=== PATIENT | male | born 1960 | race Caucasian/White ===

== ENCOUNTER 2017-02-28 19:38 | Inpatient (IN) | payer OTHER ==
[~2017-02-28] VITALS: Ht 182.9 cm; Wt 147.8 kg
[~2017-02-28 19:38] MED LIST: IBUP200T48 PO; OXYC-167 PO
[2017-02-28 19:41] VITALS: BP 151/88; PULSE 84; RESP 17; O2SAT 96
--- NOTE | 2017-02-28 20:11 | ED.REPORT ---
HPI-Abd Pain M 40 and Over Date of Service Feb 28, 2017 ED Provider: Gurjit Trujillo MD Pt is a 56 year old male with a history of a herniated disc and chronic lower extremity joint pain who presents to the ED with epigastric abdominal pain onset last night, waking him from sleep. The pain is described as a constant, dull ache with intermittent sharp pains. The pain radiates to his back and is exacerbated with eating and drinking liquids. The patient also reports nausea. He denies vomiting, melena, chest pain, or other symptoms. The patient reports taking 1200mg or more of Ibuprofen daily for his chronic pain. He denies any histories of gastritis or gastric ulcers. He has never had symptoms like this before. He does report that the pain is slightly worse when he takes a deep breath. His pain is not associated with exertion. He has had no fevers or chills. No history of coronary artery disease. No calf swelling or tenderness. No recent surgery or prolonged immobilization. Nursing Notes Stated Complaint: ABDOMINAL PAIN Chief Complaint: Male Abdominal Pain Nursing Notes Reviewed: Yes Allergies: Coded Allergies: No Known Allergies (Verified , 09/20/08) Scheduled IBUPROFEN-Expunged Drug, Do Not Renew! (IBUPROFEN-Expunged Drug, Do Not Renew!) 200 Mg Tablet 600 MG PO PRN QID as needed/Stopped 12/20/10 Oxycodone/APAP-Expunged Drug, Do Not Renew! (Endocet 0-699-Jbuinokn Drug, Do Not Renew!) 1 Tab Tablet 1-2 TAB PO PRN Every 4-6 hours as needed Pantoprazole (Pantoprazole ) 20 Mg Tablet. 20 MG PO BID Scheduled PRN Ondansetron (Zofran) 4 Mg Tablet 4 MG PO Q4H PRN PRN For Nausea General Time Seen by MD: 19:52 Chief Complaint Abdominal pain Hx Obtained From: Patient Arrived By: Walk-in Sudden in Onset?: Yes Onset Occurred: Yesterday (Last night) Context of Onset: Sleeping Symptom Duration: Since onset Progression since Onset: Constant Location: : Epigastric Quality: Aching, Painful, Sharp Severity: Current: Moderate Severity: Maximum: Moderate Exacerbated by: Eating (and drinking) Pertinent Negative: Relieved by nothing Recent Healthcare: No recent doctor visit Past Medical History Past Medical History Herniated disc Chronic knee and ankle pain Osteoarthritis Past Surgical History Knees Smoking History Unknown if Ever Smoker Social History Alcohol Use: Denies alcohol use Other Social History: Good social support, Ambulatory Status Independent Review of Systems Constitutional: Denies: Fever Respiratory: Denies: Non-productive cough Cardiovascular: Denies: Chest pain GI: Reports: Abdominal pain (Epigastric), Nausea, Denies: Melena, Vomiting Musculoskeletal: Reports: Back pain Complete sys rev & neg: except as marked. Physical Exam Initial Vital Signs Vital Signs (First) Date Time Temp Pulse Resp B/P Pulse Ox O2 Delivery O2 Flow Rate FiO2 02/28/17 19:41 36.4 84 17 151/88 96 Room Air Initial VS: Reviewed Head / Eyes: Atraumatic, Normocephalic ENT: Conjunctiva normal, No scleral icterus Neck: Supple, Full range of motion Skin: Warm, Dry, No cyanosis Neurologic: Alert, Oriented, Nonfocal Psychiatric: Mood/affect normal, Behavior normal, Normal thought content General/Constitutional: Awake, Alert Respiratory / Chest: Breath sounds NL, Breath sounds = bilat, No respiratory distress Cardiovascular: Heart rate NL, Regular rhythm, Heart sounds NL, No gallop, No murmurs, No rubs Abdomen: Soft (No rigidity), No guarding, No rebound Tenderness/Guarding/Rebound: Positive: Tender epigastric Lower Extremity / Pelvis / MS: Inspection NL, No swelling, Non-tender, No edema Interpretation & Diagnostics Lab Results Interpretation Result Diagram: 02/28/17201902/28/172019 Test 02/28/17 20:20 02/28/17 20:50 White Blood Count 16.7th/mm3 (3.8-10.1) Red Blood Count 5.49mil/mm3 (4.40-5.80) Hemoglobin 15.9g/dL (13.8-17.2) Hematocrit 46.5% (41.0-50.0) Mean Corpuscular Volume 84.7fL (81-100) Mean Corpuscular Hemoglobin 29.0pg (27.0-35.0) Mean Corpuscular Hemoglobin Concent 34.2% (32.0-37.0) Red Cell Distribution Width 13.2% (12.3-15.4) Platelet Count 195bil/L (150-400) Neutrophils (%) (Auto) 88.1% (40-74) Lymphocytes (%) (Auto) 5.0% (14-46) Monocytes (%) (Auto) 5.6% (4-12) Eosinophils (%) (Auto) 0.9% (0-5) Basophils (%) (Auto) 0.2% (0-3) Sodium Level 137mEq/L (134-144) Potassium Level 4.2mEq/L (3.5-5.2) Chloride Level 101mEq/L (97-108) Carbon Dioxide Level 19mmol/L (18-29) Blood Urea Nitrogen 14mg/dL (6-24) Creatinine 0.67mg/dL (0.76-1.27) Estimat Glomerular Filtration Rate 130mL/min (>59) Glucose Level 133mg/dL (60-99) Calcium Level 8.8mg/dL (8.5-10.1) Magnesium Level 1.8mg/dL (1.6-2.6) Total Bilirubin 0.8mg/dL (0.0-1.2) Aspartate Amino Transf (AST/SGOT) 131U/L (0-50) Alanine Aminotransferase (ALT/SGPT) 179U/L (0-44) Alkaline Phosphatase 74U/L (25-150) Troponin T < 0.010ug/L (0.0-0.011) Total Protein 7.0g/dL (6.4-8.4) Albumin 4.5g/dL (3.4-5.0) Lipase 1120U/L (13-60) Urine Color Dark yellow (YELLOW) Urine Appearance Hazy (CLEAR,HAZY) Urine pH 5.5 (5.0-8.0) Urine Specific [place] 1.030 (1.003-1.035) Urine Protein Negativemg/dL (NEG,TRACE) Urine Glucose (UA) Negativemg/dL (NEGATIVE) Urine Ketones Tracemg/dL (NEGATIVE) Urine Occult Blood Negative (NEGATIVE) Urine Nitrite Negative (NEGATIVE) Urine Bilirubin Negative (NEGATIVE) Urine Urobilinogen Normalmg/dL (NORMAL) Urine Leukocyte Esterase Negative (NEGATIVE) Urine RBC 0-2/hpf (0-2) Urine WBC 0-5/hpf (0-5) Urine Epithelial Cells Occasional/hpf (NONE-MOD) Urine Crystals None seen (NONE SEEN) Urine Bacteria Few/hpf (NONE-FEW) Urine Hyaline Casts None/lpf (NONE) Urine Granular Casts None seen (NONE SEEN) Urine Waxy Casts None seen (NONE SEEN) Urine Red Blood Cell Casts None seen (NONE SEEN) Urine White Blood Cell Casts None seen (NONE SEEN) Urine Mucus Present (None Seen) Urine Trichomonas None seen (NONE SEEN) Urine Yeast None (NONE SEEN) Urinalysis Comment None Urine Culture Reflexed Not indicated ECG Interpretation ECG Interpretation: Normal sinus rhythm rate [address] segments Normal T-wave intervals No prior available for comparison Time: 20:52 Interpreted by: ED physician Re-Eval/Medical Decision Med Decision/Clinical Course The patient is a 56-year-old male in generally good health though with chronic pain related to orthopedic injuries for which he takes large doses of ibuprofen presenting to the emergency department with epigastric pain that is worse with eating and associated with nausea. Upon arrival in the emergency department the patient is afebrile with stable vital signs normal. Somewhat uncomfortable. He was treated with IV fluids, IV pantoprazole, Zofran for nausea and a GI cocktail as well as hydromorphone. He reported significant improvement in his symptoms. Laboratory studies were notable as below: Leukocytosis 16.7 CBC otherwise unremarkable CMP notable for elevated transaminases AST 131 ALT 179 Lipase 1120 Troponin negative ECG 20:52 Normal sinus rhythm rate [address] segments Normal T-wave intervals No prior available for comparison Overall presentation concerning for acute gallstone pancreatitis. My initial thought was that his pain was related to instead gastritis/peptic ulcer disease though given his lab findings this seems less likely. The presentation is not particularly suggestive of acute coronary syndrome however I did obtain a screening EKG and troponin which were reassuring. At this time I have ordered a right upper quadrant ultrasound. The patient has been signed out to Dr. Mcgregor pending imaging studies and likely surgery consultation. Time of Eval: 21:53 Patient Status: Condition improved Re-Evaluation/Progress Note: Discussed with patient lab results, diagnosis, and plan for US and transfer of care to Dr. Campbell at change of shift. Counseled Regarding: Diagnosis, Lab results Discharge & Departure Shift Change Sign-Out Patient Care Transferred: Yes Discussed Complaint(s): Yes Laboratory Evaluation: Done, results pending Imaging Studies: Ordered, not yet done Response to Therapy: Improved Primary Impression: Acute pancreatitis Pancreatitis type: unspecified pancreatitis type Acute pancreatitis complication: unspecified Qualified Code: K85.90 - Acute pancreatitis without necrosis or infection, unspecified Additional Impressions: Elevated transaminase measurement Epigastric pain Vital Signs - All Vital Signs Date Time Temp Pulse Resp B/P Pulse Ox O2 Delivery O2 Flow Rate FiO2 02/28/17 19:41 36.4 84 17 151/88 96 Room Air Referrals: NOPCP (PCP) [facility] Care Transferred to: Dr. Campbell Care Transferred at: 21:55 Scribe Attestation Portions of this note were transcribed by Anita Yun. I, Dr. Trujillo, personally performed the history, physical exam, and medical decision-making; I reviewed and confirmed the accuracy of the information in the transcribed note. Signed by: Ruth Page, 02/28/2017, 21:55 copies to: [facility] Gurjit Trujillo MD Feb 28, 2017 20:10 ANITA YUN Feb 28, 2017 20:18 personally performed the history, physical exam, and medical decision-making; I reviewed and confirmed the accuracy of the information in the transcribed note. copies to: [facility] Gurjit Trujillo MD Feb 28, 2017 20:10 ANITA UYN Feb 28, 2017 20:18 Gurjit Trujillo MD Feb 28, 2017 20:10 ANITA YUN Feb 28, 2017 20:18
[2017-02-28] MEDS ORDERED: 0.9% Sodium Chloride 1,000 ML IV ONE (20:17)
[2017-02-28] MEDS ORDERED: LidocaineVisc 2%:Antacid 1:1 10 mL Syringe PO ONE (20:20)
[2017-02-28] MEDS ORDERED: Pantoprazole 4 mg/mL 10 mL Inj IVPUSH ONE (20:20)
[2017-02-28] MEDS ORDERED: Ondansetron 2 mg/mL 2 mL Inj IVPUSH ONE (20:20)
[2017-02-28 20:29] LABS: BASOPHILS % (AUTO) 0.2 % (0-3); EOSINOPHILS % (AUTO) 0.9 % (0-5); MONOCYTES % (AUTO) 5.6 % (4-12); Mean Corpuscular Volume 84.7 fL (81-100); NEUTROPHILS % (AUTO) 88.1 % (40-74); Platelet Count 195 bil/L (150-400)
[2017-02-28] MEDS: HYDROmorphone 0.5 mg/0.5 mL iSecure Syringe IVPUSH PRN ×3 (20:39→23:49)
[2017-02-28 20:50] LABS: TROPONIN T < 0.010 ug/L (0.0-0.011)
[2017-02-28] MEDS ORDERED: PANT20TA2 PO (20:53)
[2017-02-28] MEDS ORDERED: ONDA4TAB6 PO (20:53)
[2017-02-28 21:00] LABS: Magnesium 1.8 mg/dL (1.6-2.6)
[2017-02-28 21:15] LABS: Lipase 1120 U/L (13-60)
[2017-02-28 21:47] LABS: APPEARANCE,URINE HAZY (CLEAR,HAZY); COLOR,URINE DARK YELLOW (YELLOW); OCCULT BLOOD,URINE NEGATIVE (NEGATIVE); PH,URINE 5.5 (5.0-8.0); UROBILINOGEN,URINE NORMAL (NORMAL)
[2017-02-28 23:02] VITALS: BP 139/81; PULSE 75; RESP 16; O2SAT 96
[2017-03-01] VITALS (10 sets, daily range): BP systolic 125–152; BP diastolic 70–91; PULSE 78–113; RESP 18–20; O2SAT 93–100
[2017-03-01] MEDS ORDERED: Ondansetron 2 mg/mL 2 mL Inj ONE (00:54)
[2017-03-01] MEDS ORDERED: Polyethylene Glycol (PEG) 17 Gm Powder PO PRN (01:05)
[2017-03-01] MEDS ORDERED: Alum-Mag Hydrox-Simeth 30 mL Suspension PO PRN (01:05)
--- NOTE | 2017-03-01 01:07 | PCM.HPMED ---
Subjective Date of Service Mar 01, 2017 Primary Provider: Admitting Physician: Padmini Yanez DO Primary Care Physician: Elisabet Attending Physician: Padmini Yanez DO Admit Status: From the Emergency Department Chief Complaint: abdominal pain History of Present Illness: 56yoM with minimal past medical history admitted with 2 day history of epigastric pain with concern for pancreatitis. On 02/27 at 9pm patient states that he began having 7/10 mid epigastric pain that radiated in a band like distribution and progressed to 9/10. Pain was associated with nausea and improved with tramadol however persisted until seen at [facility] ED for further evaluation. Patient has never felt similar pain before but he does have a traumatic back injury which interferes with his evaluation of his pain. He has no history of pancreatitis, gall stones, cholelithiasis, ETOH use, HLD or recent medication changes. He denies fever, chills, vomiting, lightheadedness, dizziness, chest pain, chest tightness, shortness of breath but does endorse nausea with a decrease in PO intake. On presentation vitals T36.4, HR 84, RR 17, BP 151/88, 96% on RA. WBC 16.7, lipase 1120, mildly elevated AST/ALT Review of Systems: complete review of systems obtained. positive as per hpi otherwise negative. 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, [employer] Hx Alcohol Use: No Hx Substance Use: No Hx Tobacco Use: No Smoking Status: Unknown if Ever Smoker Living Arrangement: with Family (Lives with who is DPOA) Exam Vital Signs Vital Sign - Last Date Time Temp Pulse Resp B/P Pulse Ox O2 Delivery O2 Flow Rate FiO2 02/28/17 23:02 36.8 75 16 139/81 96 Room Air Intake and Output 02/28/17 02/28/17 03/01/17 Cumulative From/Thru 15:00 23:00 07:00 02/28/17 19:41 - 02/28/17 20:39 Intake Total 1000 ml 1000 ml Balance 1000 ml 1000 ml Intake IV Total 1000 ml 1000 ml Exam General: Alert, Oriented X3, Cooperative, No acute Distress Eyes: PERRLA, Scleral Anicteric Mouth: Mouth Normal, Mucous Membranes Dry/[place] Neck: Supple, no Thyromegaly, trachea central. Chest & Lungs: Clear to auscultation & percussion, No adventitious breath sounds, no crackles, no wheeze Cardiovascular: Normal S1, Normal S2, No Murmurs/Rubs/Gallops, Regular Rate/ Rhythm, Murmur, Other (No JVD, no peripheral edema) Pulses: Radial (present and equal), Dorsalis Pedi (present and equal) Abdomen: Soft, tender in the epigastric region, Non-distended, Normoactive bowel tones. Musculoskeletal: Unremarkable. Normal range of motion, no swollen or erythematous joints Extremities: No edema, no cyanosis, no clubbing. Skin: No rashes. Warm and dry, no erythematous areas Neurological: Grossly neurologically intact, has generalized weakness, Normal Speech, Sensation Intact Lymphatic: Lymph nodes Cervical and Axillary not palpable Lab and Diagnostics Result Diagram: 02/28/17201902/28/172019 X-Rays, CTs and MRIs CT abdomen pelvis with contrast Conclusion: Acute pancreatitis. Small amount of ascites. Cholelithiasis. Prominent gallbladder wall may be consistent with acute cholecystitis or secondary to pancreatitis. Fat containing umbilical hernia without evidence of complication. Colonic diverticulosis. Atelectasis in the lung bases. Assessment & Plan 56yoM with minimal past medical history admitted with 2 day history of epigastric pain with concern for pancreatitis. Pancreatitis, acute -no prior history of pancreatitis, no ETOH use, no history of elevated triglycerides -likely secondary to gall stones however CBD not dilated, AST / ALT elevated -CT scan as above, consistent with pancreatitis -triglyceride level pending -NS 150cc/hr -clear liquid diet -GI consult, am team to contact, recs appreciated -consider MRCP Leukocytosis, acute -potentially a/w pancreatitis however CT scan concerning for cholecystitis -will continue to monitor closely -low threshold to start broad spectrum abx Elevated glucose, acute -no history of diabetes -hgbA1c pending Elevated transaminase level, acute -a/w gallstone dz vs NAFLD -repeat with AM labs Pain Evaluation: Adequate Pain Control VTE Prophylaxis: Sub-Q Heparin (Unfractionated) Resuscitation Status: DNR/DNI:Do Not Resuscitate/Intubate Padmini Yanez DO Mar 01, 2017 01:07
[2017-03-01] MEDS: 0.9% Sodium Chloride 1,000 ML IV SCH ×3 (01:59→16:32)
[2017-03-01] MEDS: HYDROmorphone 0.5 mg/0.5 mL iSecure Syringe IVPUSH PRN ×4 (02:38→10:37)
--- NOTE | 2017-03-01 02:53 | NUR ---
Admit to room 3029 @01:45 gallstone pancreatitis. A&Ox3, pain 0/10, denies N/V, VSS sat'ing 100% on RA 152/87 bp 88p temp 36.6. Oriented to room and POC on whiteboard. Intermittent unsteady gait/cane use since work place herniated disk x3 injury six months ago. High risk for JACQUELINE.
[2017-03-01] MEDS ORDERED: TRAM50TA2 PO (03:10)
--- NOTE | 2017-03-01 05:50 | NUR ---
Pain Positional lower back pain. Does not tolerate laying in bed for prolonged periods of time. approximately Q2 hours will request help standing due to bulging disks acquired during work accident 6 mo' ago. Tried bed flat, 30 deg, trendelenburg. Received order for Q4 5mg Roxycodone to compliment Q4 0.5-1mg IV Hydromorphone break through pain.
[2017-03-01] MEDS: Ondansetron 2 mg/mL 2 mL Inj IVPUSH PRN ×2 (06:42→18:14)
--- NOTE | 2017-03-01 07:23 | DRSVH ---
PROCEDURE: CT ABDOMEN AND PELVIS WITH CONTRAST ([id number]) INDICATIONS: epigastric pain, pancreatitis TECHNIQUE: After the administration of intravenous contrast, 5 mm thick sections acquired from the diaphragm to the symphysis. 5 mm coronal and sagittal reformats were acquired. For radiation dose reduction, the following was used: automated exposure control, adjustment of mA and/or kV according to patient siz e. COMPARISON: None. FINDINGS: Image quality: Excellent. ABDOMEN: Lung bases: Dependent changes are present within the bases. Solid organs: Liver and spleen are normal in size and enhancement. Hepatic steatosis is present. Gal lbladder demonstrates very faint layering hyperdensity. There is borderline wall thickening. Biliary system is non dilated. Pancreas demonstrates a minimal appearance of pancreatic edema particularly within the head and proximal body. There is a small amount of scattered peripancreatic fluid within t hese regions also extending into the anterior pararenal space bilaterally. There is no focal fluid co llection indicative of pseudocyst or abscess. No adrenal nodules. Kidneys demonstrate normal size an d enhancement, without hydronephrosis. Peritoneum and bowel: Bowel loops demonstrate normal wall thickness and caliber. No free air. Ther e is minimal fluid in the pericolic gutters as well as in pelvis. Minimal scattered colonic diverticu la are present without associated inflammatory change. Nodes and vessels: No retroperitoneal or mesenteric adenopathy by size criteria. Aorta and inferior vena cava are normal in size. Miscellaneous: Fat containing ventral hernia is present. PELVIS: Genitourinary: Bladder wall thickness is normal. Miscellaneous: No inguinal hernias or adenopathy. Bones: No suspicious bony lesions. No vertebral body compression fractures. IMPRESSION: 1. Minimal mild pancreatic edema with. Pancreatic fluid as above. No pseudocyst or abscess. Findings are most suggestive of pancreatitis. 2. Cholelithiasis is present. Gallbladder wall is not definitively thickened. However, minimal appear ance of borderline prominence could be secondary to adjacent pancreatitis. 3. Diverticulosis. Dictated by: Malena Esqueda M.D. on 03/01/2017 at 7:15 Approved by: Malena Esqueda M.D. on 03/01/2017 at 7:21
--- NOTE | 2017-03-01 07:40 | DRSVH ---
PROCEDURE: US ABDOMEN, LIMITED ([id number]) INDICATIONS: RUQ pain, elevated lipase TECHNIQUE: Real-time focused scanning was performed of the abdomen, with image documentation. COMPARISON: None. FINDINGS: Limited sonographic images demonstrate multiple gallbladder stones. Gallbladder wall is mil dly prominent measuring approximately 4 mm. There is no common bile duct dilation. No intrahepatic bi liary dilation. Pancreas is not well-seen. IMPRESSION: Cholelithiasis with wall thickening. This is primarily secondary to cholecystitis or pote ntially nonvisualized pancreatic inflammation is unclear. As clinically indicated, CT may be obtained . Dictated by: Malena Esqueda M.D. on 03/01/2017 at 7:38 Approved by: Malena Esqueda M.D. on 03/01/2017 at 7:39
[2017-03-01 09:02] LABS: BASOPHILS % (AUTO) 0.1 % (0-3); EOSINOPHILS % (AUTO) 0.1 % (0-5); MONOCYTES % (AUTO) 4.4 % (4-12); Mean Corpuscular Hemoglobin 29.4 pg (27.0-35.0); Mean Corpuscular Volume 84.2 fL (81-100); NEUTROPHILS % (AUTO) 91.5 % (40-74); Platelet Count 171 bil/L (150-400)
--- NOTE | 2017-03-01 11:54 | DRSVH ---
PROCEDURE: MR ABDOMEN MRCP INDICATIONS: Pancreatitis,elevated LFTs TECHNIQUE: Coronal HASTE through the abdomen, axial 2-D FLASH in- and [id number], and breath-hold T2 FSE with fat saturation through the biliary system and pancreas. Oblique coronal and axial thin-slice HASTE, radial thick-slab HASTE centered on the extrahepatic bile ducts. Intravenous secretin: Not requested. COMPARISON: [facility], CT, CT ABD PELVIS W CON, 03/01/2017, 1:27. [facility], US, ABDOMEN LTD, 02/28/2017, 22:16. FINDINGS: Image quality: Excellent. Pancreas and biliary system: Intra- and extra-hepatic biliary ducts are non dilated. Pancreas is no rmal in morphology, without adjacent soft tissue edema. Pancreatic duct is normal in caliber, withou t developmental anomalies. Gallbladder is mildly distended, and contains a large amount of less than 5 mm gallstones. There is mild pericholecystic fluid. There is also peripancreatic fluid adjacent to the body, uncinate process and head. No definite intraluminal filling defects seen within the extrah epatic bile duct to suggest choledocholithiasis. Other solid organs: Liver and spleen are normal in size. No adrenal nodules. Both kidneys are norm al in size, without hydronephrosis. Nodes and vessels: No retroperitoneal or mesenteric adenopathy by size criteria. Aorta and inferior vena cava are normal in size. Bowel and peritoneum: Unenhanced bowel loops are normal in caliber. No free fluid. Lung bases: No basal pleural effusions. Heart size is normal. Bones and soft tissues: No ventral hernias. Bone marrow is of normal overall signal. IMPRESSION: Cholelithiasis. Pericholecystic edema/fluid suggest acute cholecystitis. Please correlate clinically Peripancreatic edema and fluid in keeping with acute pancreatitis. Please correlate with pancreatic e nzymes. No intraluminal filling defects within the extrahepatic bile ducts to suggest choledocholithiasis. Dictated by: Aurelio Bird M.D. on 03/01/2017 at 11:41 Approved by: Aurelio Bird M.D. on 03/01/2017 at 11:53
[2017-03-01] MEDS ORDERED: HYDROmorphone 0.5 mg/0.5 mL iSecure Syringe IVPUSH PRN ×2 (11:55→14:30)
--- NOTE | 2017-03-01 13:18 | NUR ---
Social Work Note: Screen Note Data& Assessment: EMR reviewed. Patient is a 56 year old male admitted on 03/01/17 for Gallstone Pancreatitis. Pt has [facility] for insurance coverage and sees no one for primary care. Pt lives in [facility] with family and is independent at baseline. Patient has a re-admit score of 0 no risk. Pt is currently SBA in his room. No discharge needs identified at this time. SW to continue to follow if any needs arise. Plan: Anticipated discharge home via POV when medically ready. No discharge needs identified at this time. SW to continue to follow if any needs arise. Dea Thao LMSW, ACM
[2017-03-01] MEDS: Piperacillin-Tazo 3.375 Gm Inj 3.375 GM in Dextrose 5% Minibag Plus 50 ML IV SCH ×2 (15:15→22:53)
--- NOTE | 2017-03-01 18:46 | CONS ---
[address] [address] CONSULTATION REPORT PATIENT: ARIELLA SCHNEIDER : 1960 MR#: [id number] ADMIT: 03/01/2017 JOB ID: [id number] DATE OF SERVICE: 03/01/2017 CHIEF COMPLAINT: We have been asked by the emergency department and hospitalist service to consult on this 56-year-old male with probable gallstone pancreatitis. HISTORY OF PRESENT ILLNESS: The patient presented to the emergency department last night complaining of mid epigastric pain. Pain radiates to his back. He has no history of jaundice, acholic stool, or tea-colored urine. He does have a history of taking large amounts of ibuprofen for herniated disk and chronic lower extremity pain. He has no previous history of peptic ulcer disease. MEDICATIONS: Ibuprofen, Percocet, pantoprazole, p.r.n. ondansetron. ALLERGIES: None. SOCIAL HISTORY: , seen with his present. Negative daily alcohol intake. Negative binge drinking. FAMILY HISTORY: Noncontributory. REVIEW OF SYSTEMS: Per admission history and physical. PHYSICAL EXAMINATION: The patient's temperature is 36.9. His pulse is 100. His blood pressure is 136/84. His sclerae are clear. His neck is supple. Lungs are clear. Heart sounds are regular. He has mild right upper quadrant tenderness, mild to moderate mid epigastric tenderness which is greater than his right upper quadrant tenderness to palpation, no percussion tenderness. LABORATORY: Admission white count was 16.7. White count this morning is 18.3. Hematocrit was 46 last night and 43 with hydration this morning. Electrolytes are normal. Glucose is 130. His total bilirubin and alkaline phosphatase are normal. His AST and ALT are mildly elevated, decreasing though from last night to today. Lipase was 1120 last night and is down to 619 today Procalcitonin is 0.1. IMAGING: He had an abdominal CT scan last night, demonstrating cholelithiasis and pancreatitis. IMPRESSION/PLAN: Gallstone pancreatitis, relatively mild. I have outlined with him my recommendation that we allow him to stay on the medical service with supportive care and follow him as his pancreatitis resolves and that he have a laparoscopic cholecystectomy prior to leaving the hospital, though the final timing of surgery will be left up to Dr. Spivey and the patient.
[2017-03-02] VITALS (16 sets, daily range): BP systolic 142–162; BP diastolic 75–93; PULSE 69–111; RESP 16–21; O2SAT 92–97
[2017-03-02] MEDS: 0.9% Sodium Chloride 1,000 ML IV SCH ×5 (00:51→23:50)
--- NOTE | 2017-03-02 06:24 | NUR ---
Pain/NOC Shift: Pt c/o low chronic back pain during the night, medication administered; effective. Pt denied chest pain and SOB, states abdominal pain is minimal. Pt slept off/on throughout the night, requiring to get out of bed and walk around to help relieve back pain multiple times during NOC shift. Pt pleasant and cooperative with care. Kpad order obtained for MD to help relieve back pain, pt states this is helping.
[2017-03-02] MEDS: Piperacillin-Tazo 3.375 Gm Inj 3.375 GM in Dextrose 5% Minibag Plus 50 ML IV SCH ×3 (06:41→22:28)
[2017-03-02 09:20] LABS: BASOPHILS % (AUTO) 0.1 % (0-3); EOSINOPHILS % (AUTO) 0.3 % (0-5); MONOCYTES % (AUTO) 7.3 % (4-12); Mean Corpuscular Hemoglobin 29.1 pg (27.0-35.0); Mean Corpuscular Volume 87.2 fL (81-100); NEUTROPHILS % (AUTO) 87.1 % (40-74); Platelet Count 187 bil/L (150-400)
--- NOTE | 2017-03-02 09:28 | PCM.PNMED ---
Subjective Date of Service March 02, 2017 Subjective IN regard to nausea, this is improving, abdominal pain still present, not worsening at least, controlled with PRN medications IV. Back pain has worsened overnight, due to chronic disc issues. He has talked with surgeon already, optimistic cholecystectomy will aid in recovery and prevent reoccurrence. He denies current, fever, chills, sweats or other complaints at this time. Exam Vital Signs Vital Sign - Last Date Time Temp Pulse Resp B/P Pulse Ox O2 Delivery O2 Flow Rate FiO2 03/02/17 05:58 36.7 98 20 148/79 96 Room Air Intake and Output 03/01/17 03/01/17 03/02/17 Cumulative From/Thru 15:00 23:00 07:00 02/28/17 19:41 - 03/02/17 06:25 Intake Total 2109 ml 1876 ml 4985 ml Output Total 500 ml 775 ml 1950 ml Balance 1609 ml 1101 ml 3035 ml Intake Oral 125 ml 200 ml 325 ml IV Total 1984 ml 1676 ml 4660 ml Output Urine Total 500 ml 775 ml 1950 ml # Bowel Movements 0 0 0 General: Alert, Oriented X3, Cooperative, Moderate Distress Mouth: Mucous Membr Moist/[place] Cardiovascular: Regular Rate/Rhythm Abdomen: Tender, Non-distended, Other ((+)BS) Extremities: No cyanosis/clubbing/edma bilat Neurological: Grossly Neurologically Intact IVs and Medications Medications Reviewed: Medications were reviewed in detail Lab and Diagnostics Result Diagram: 03/01/17 0820 03/02/17 0745 X-Rays, CTs and MRIs CT abdomen pelvis with contrast Conclusion: Acute pancreatitis. Small amount of ascites. Cholelithiasis. Prominent gallbladder wall may be consistent with acute cholecystitis or secondary to pancreatitis. Fat containing umbilical hernia without evidence of complication. Colonic diverticulosis. Atelectasis in the lung bases. Assessment & Plan 56yoM with minimal past medical history admitted with 2 day history of epigastric pain with concern for pancreatitis. # Pancreatitis, acute -no prior history of pancreatitis, no ETOH use, no history of elevated triglycerides -likely secondary to gall stones however CBD not dilated, AST / ALT elevated, AM labs still pending. -CT scan as above, consistent with pancreatitis -triglyceride level pending -NS 150cc/hr -currently NPO - Gen surgery consulted, DX'd gallstone pancreatitis, [facility] - Continue PRN pain emdications as need #Leukocytosis, acute -potentially a/w pancreatitis however CT scan concerning for cholecystitis -will continue to monitor, upward trending since admission, AM labs pending - Zosyn initiated on 02/19 # Elevated glucose, acute -no history of diabetes -hgbA1c pending # Elevated transaminase level, acute -a/w gallstone dz - continue trending S/P procedure. Pain Evaluation: Adequate Pain Control VTE Prophylaxis: Sub-Q Heparin (Unfractionated) Resuscitation Status: DNR/DNI:Do Not Resuscitate/Intubate Time spent 25 minutes Raimundo Stafford DO March 02, 2017 09:28
[2017-03-02 09:50] LABS: INR 1.06 ratio
--- NOTE | 2017-03-02 10:45 | NUR ---
off unit pt of unit for dakotah graham. no s/s of distress at time of transfer.
[2017-03-02] MEDS ORDERED: Lactated Ringer's 500 ML IV PRN (11:01)
[2017-03-02] MEDS ORDERED: Lactated Ringer's 1,000 ML IV SCH (11:01)
[2017-03-02] MEDS ORDERED: Ondansetron 2 mg/mL 2 mL Inj IVPUSH PRN (11:05)
[2017-03-02] MEDS ORDERED: fentaNYL-PF 50 mCg/mL 2 mL Inj IVPUSH PRN (11:05)
[2017-03-02] MEDS ORDERED: Labetalol 5 mg/mL 4 mL Inj IV PRN (11:05)
[2017-03-02] MEDS ORDERED: MetoCLOpramide 5 mg/mL 2 mL Inj IVPUSH PRN (11:05)
[2017-03-02] MEDS ORDERED: HYDROmorphone 1 mg/mL Inj IVPUSH PRN (11:05)
[2017-03-02] MEDS ORDERED: Phenylephrine 10,000 mCg/mL Inj IVPUSH PRN (11:05)
[2017-03-02] MEDS ORDERED: EPHEDrine Sulfate 50 mg/mL Inj IVPUSH PRN (11:05)
[2017-03-02] MEDS ORDERED: Dexamethasone 4 mg/mL Inj IVPUSH PRN (11:05)
[2017-03-02] MEDS ORDERED: Bupivacaine-MPF 0.25%/EPI 30 mL Inj INJ ONE (11:06)
--- NOTE | 2017-03-02 11:06 | PCM.HPANE ---
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 200 Mg [id number] Mg PO PRN QID as needed/Stopped 12/20/10 08/05/10 History History of ENT Problems?: No HEENT History: Denies:: Cataracts Dysphagia Glaucoma Hearing Problem Sinus Problem TMJ Denture Type: None Teeth Condition: Within Normal Limits Hx of Heart Problems?: No Cardiovascular History: Denies:: AICD Abdominal Aortic Aneurism Atrial Fibrillation Cardiac Surgery Chest Pain Congestive Heart Failure Coronary Artery Disease Edema Heart Murmur Hypertension Irregular Heartbeat Pacemaker Peripheral Vascular Rheumatic Fever Thrombophlebitis Valvular Heart Disease Hx of Respiratory Problem?: No Respiratory History: Denies:: Tuberculosis Hx Neurologic Problems?: No Hx of GI Problems?: Yes Hx of Problems?: No Male Hx: Denies:: Prostate Problems Scrotal Mass Testicular Surgery Skin History: Positive for:: History Skin Disorders? (Eczema-Feet Improved ) Denies:: Pressure Ulcers Hx Musculoskeletal Problems?: Yes Musculoskeletal History: Positive for:: Back Injury (3 disks herniated 2016 work accident) Musculoskeletal Trauma (Torn Achilles Tendon, Dislocated Shoulder & fingers) Denies:: Degenerative Joint Joint Replacement Systemic Lupus Hx of Psycho/Social Problems?: No Psycho Social History: Denies:: Anxiety Bipolar Disorder Hx Depression Suicide Attempt Hx Surgeries?: Yes (Rpr. Lt. Achilles Tendon,Rt. Knee Scope, Foot & Finger surgeries, Wrist Rpr) Hx Any Other Health Problems?: No Other History: Denies:: Cancer Endocrine Disease Hospitalization Thyroid Disease History Blood Transfusions: Positive for:: Accept Blood Products? 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, [place] Hx Alcohol Use: NoHx Substance Use: No Smoking Status: Unknown if Ever Smoker Have You Smoked inLast 12 mo: No Stop/Bang Treated for Sleep Apnea?: No Do You Have a CPAP Machine?: No S-Snoring: Do You Snore Loudly: Yes T-Tired: feel tired, fatigued: No O-Obsered: Observed not breath: No P-Blood Pressure: treated: No B- Body Mass Index > 35 kg/m2: Yes A- Age over 50: Yes N- Neck Large Circumference: Yes G- Gender Male: Yes JACQUELINE Total Score: 5 JACQUELINE Risk Assessment: High Risk, =/>3 Yes JACQUELINE Category 2: Yes Risk Assessment Category Category 1A: Patient has history of documented sleep apnea, and HAS NOT received any narcotic, sedative or anesthesia administration during this stay. Category 1B: Patient has history of documented sleep apnea, and HAS received any narcotic , sedative or anesthesia administration during this stay Category 2: Patient has SUSPECTED Obstructive Sleep Apnea, and HAS received any narcotic , sedative or anesthesia administration during this stay. Category 3: Patient has SUSPECTED Obstructive Sleep Apnea and HAS NOT received narcotic, sedative or anesthesia administration during this stay. Category 4: Outpatient in Procedural Areas with known sleep apnea or who screen positive for High Risk via the STOP/BANG questionnaire. Exam Exam Vital Signs Vital Signs Date Time Temp Pulse Resp B/P Pulse Ox O2 Delivery O2 Flow Rate FiO2 03/02/17 10:19 111 03/02/17 09:35 36.9 99 20 162/93 95 Room Air 03/02/17 05:58 36.7 98 20 148/79 96 Room Air General Appearance: Alert, Oriented X3, Cooperative, Moderate Distress HEENT/AIRWAY: MP 4 Lungs: Clear to Auscultation, Normal Air Movement Heart: Exam Unremarkable, Regular Rate/Rhythm, No Murmurs/Rubs/Gallops Meds/Labs/Diagnostics Admission Meds Current Medications Piperacillin Sod/ Tazobactam Sod/ Dextrose/Water (Zosyn 3.375 Gm Inj/D5W Minibag Plus) 50 ml @ 12.5 mls/hr Q8H IV Last administered on 03/02/17t 06:41; Start 03/01/17 at 14:00 Labs Test 02/28/17 20:20 02/28/17 20:50 03/01/17 08:20 03/02/17 07:45 Magnesium Level 1.8mg/dL (1.6-2.6) Troponin T < 0.010ug/L (0.0-0.011) Triglycerides Level 117mg/dL (0-149) Urine Color Dark yellow (YELLOW) Urine Appearance Hazy (CLEAR,HAZY) Urine pH 5.5 (5.0-8.0) Urine Specific [place] 1.030 (1.003-1.035) Urine Protein Negativemg/dL (NEG,TRACE) Urine Glucose (UA) Negativemg/dL (NEGATIVE) Urine Ketones Tracemg/dL (NEGATIVE) Urine Occult Blood Negative (NEGATIVE) Urine Nitrite Negative (NEGATIVE) Urine Bilirubin Negative (NEGATIVE) Urine Urobilinogen Normalmg/dL (NORMAL) Urine Leukocyte Esterase Negative (NEGATIVE) Urine RBC 0-2/hpf (0-2) Urine WBC 0-5/hpf (0-5) Urine Epithelial Cells Occasional/hpf (NONE-MOD) Urine Crystals None seen (NONE SEEN) Urine Bacteria Few/hpf (NONE-FEW) Urine Hyaline Casts None/lpf (NONE) Urine Granular Casts None seen (NONE SEEN) Urine Waxy Casts None seen (NONE SEEN) Urine Red Blood Cell Casts None seen (NONE SEEN) Urine White Blood Cell Casts None seen (NONE SEEN) Urine Mucus Present (None Seen) Urine Trichomonas None seen (NONE SEEN) Urine Yeast None (NONE SEEN) Urinalysis Comment None Urine Culture Reflexed Not indicated C-Reactive Protein 5.2mg/dL (0.0-0.5) Procalcitonin 0.10ng/mL (0.00-0.08) Sodium Level 138mEq/L (134-144) Potassium Level 4.1mEq/L (3.5-5.2) Chloride Level 99mEq/L (97-108) Carbon Dioxide Level 23mmol/L (18-29) Blood Urea Nitrogen 11mg/dL (6-24) Creatinine 0.73mg/dL (0.76-1.27) Estimat Glomerular Filtration Rate 118mL/min (>59) Glucose Level 145mg/dL (60-99) Calcium Level 8.0mg/dL (8.5-10.1) Total Bilirubin 0.7mg/dL (0.0-1.2) Aspartate Amino Transf (AST/SGOT) 27U/L (0-50) Alanine Aminotransferase (ALT/SGPT) 78U/L (0-44) Alkaline Phosphatase 65U/L (25-150) Total Protein 6.4g/dL (6.4-8.4) Albumin 4.2g/dL (3.4-5.0) Lipase 74U/L (13-60) Test 03/02/17 08:30 03/02/17 09:25 White Blood Count 20.6th/mm3 (3.8-10.1) Red Blood Count 4.91mil/mm3 (4.40-5.80) Hemoglobin 14.3g/dL (13.8-17.2) Hematocrit 42.8% (41.0-50.0) Mean Corpuscular Volume 87.2fL (81-100) Mean Corpuscular Hemoglobin 29.1pg (27.0-35.0) Mean Corpuscular Hemoglobin Concent 33.4% (32.0-37.0) Red Cell Distribution Width 13.7% (12.3-15.4) Platelet Count 187bil/L (150-400) Neutrophils (%) (Auto) 87.1% (40-74) Lymphocytes (%) (Auto) 4.9% (14-46) Monocytes (%) (Auto) 7.3% (4-12) Eosinophils (%) (Auto) 0.3% (0-5) Basophils (%) (Auto) 0.1% (0-3) Prothrombin Time 11.4sec (8.1-12.5) Prothromb Time International Ratio 1.06ratio Plan Impression Patient chart reviewed, patient interviewed and anesthestic plan with risks, benefits, and alternatives discussed, and informed consent obtained. NPO per Anesth. Guidelines: Yes ASA Physical Status: ASA2 Mod Systemic Disease Anesthetic Plan: GA Bene/Risks/Altern/Consents: Yes HP Complete Prior to Induction: Yes Neil Hull MD March 02, 2017 11:05
--- NOTE | 2017-03-02 12:22 | DRSVH ---
PROCEDURE: X-RAY OPERATIVE CHOLANGIOGRAM ([id number]) INDICATIONS: STONES COMPARISON: None. FINDINGS: Biliary ducts: The surgeon injected contrast into the biliary ducts after cannulation of the cystic duct stump. Visualized intra- and extrahepatic bile ducts are normal in caliber, without strictures. No intraluminal filling defects to suggest retained ductal stones or sludge. No evidence for iatro genic ductal injury. Duodenum: Contrast flows promptly through the sphincter of Oddi into the duodenum, which appears nor mal in caliber. IMPRESSION: Normal operative cholangiogram. Dictated by: Akash Zelaya M.D. on 03/02/2017 at 12:20 Approved by: Akash Zelaya M.D. on 03/02/2017 at 12:20
[2017-03-02] MEDS ORDERED: HYDROcodone-APAP 5-325 mg Tablet PO PRN (12:40)
[2017-03-02] MEDS ORDERED: Neostigmine 1 mg/mL 10 mL Inj ONE (13:12)
[2017-03-02] MEDS ORDERED: fentaNYL-PF 50 mCg/mL 2 mL Inj ONE (13:12)
[2017-03-02] MEDS ORDERED: HYDROmorphone 2 mg/mL Inj ONE (13:12)
[2017-03-02] MEDS ORDERED: Propofol 10,000 mCg/mL 20 mL Inj ONE (13:12)
[2017-03-02] MEDS ORDERED: MeTOProlol 1 mg/mL 5 mL Inj ONE (13:12)
[2017-03-02] MEDS ORDERED: Rocuronium 10 mg/mL 5 mL Inj ONE (13:12)
[2017-03-02] MEDS ORDERED: Ketamine 10 mg/mL 20 mL Inj ONE (13:12)
[2017-03-02] MEDS ORDERED: Dexamethasone 4 mg/mL Inj ONE (13:12)
[2017-03-02] MEDS ORDERED: Ondansetron 2 mg/mL 2 mL Inj ONE (13:12)
[2017-03-02] MEDS ORDERED: Glycopyrrolate 0.2 MG/ML 1mL Inj ONE (13:12)
--- NOTE | 2017-03-02 14:45 | NUR ---
transfer pt transferred to [facility] room 1031. Pacu report given to Robin Greenfield RN. Family notified of room transfer. Meds tubed down
--- NOTE | 2017-03-02 16:11 | NUR ---
POST OP Patient arrived from PACU on OR [facility] and was able to scoot transfer over to hospital bed. On 4 LPM O2 when arrived to room, O2 sats stable, turned down to 2 LPM. PORFIRIO drain present to R side of abdomen with sero-sanguineus fluid. 3 lap sites are C/D/I. SCD's to bilateral legs. Complains of soreness on right side of abdomen, maybe a 1/10 per patient. Denies any pain medication for now. Ambulated around unit hallway x1 with SBA and O2. Encouraged cough/deep breathing while awake in bed. Gave extra pillow for splinting. IV fluids started, along with IV abx. IV site patent and intact. Continue to monitor.
--- NOTE | 2017-03-02 18:22 | PCM.ANEP1 ---
Post Anesthesia Phase 1 PACU Phase 1 Assessment Date of Service: March 02, 2017 Vital Signs Vital Signs Date Time Temp Pulse Resp B/P Pulse Ox O2 Delivery O2 Flow Rate FiO2 03/02/17 17:41 36.7 90 18 147/88 94 Room Air 03/02/17 15:40 69 20 96 Nasal Cannula 2.00 03/02/17 14:40 Supplement Oxygen 03/02/17 14:15 36.4 86 18 150/83 93 Room Air 03/02/17 13:54 81 19 92 Nasal Cannula 4 03/02/17 13:45 78 18 158/78 93 Nasal Cannula 4 03/02/17 13:35 78 16 155/77 93 Nasal Cannula 4 03/02/17 13:20 36.7 77 16 157/75 94 Simple Mask 8 03/02/17 13:15 85 21 147/85 97 Simple Mask 8 03/02/17 13:10 83 19 152/77 97 Simple Mask 8 03/02/17 13:05 88 20 153/79 96 Simple Mask 8 03/02/17 12:59 36.9 92 21 142/76 96 Simple Mask 8 Anesthetic Administered: GA Level of Alertness: Awake, talking ROSEN's with Equal Strength: Yes Pain: Yes Pain Scale Score: 6 Nausea or Vomiting: No Airway Device: Oralpharangeal Airway Oxygen Delivery: Room Air Lungs: Clear to Auscultation, Normal Air Movement Complications: No Follow up Care: No Patient Instructions Provided: Yes Neil Hull MD March 02, 2017 18:21
--- NOTE | 2017-03-02 21:34 | OP ---
[address] [address] OPERATIVE REPORT PATIENT: ARIELLA SCHNEIDER : 1960 MR#: [id number] ADMIT: 03/01/2017 JOB ID: [id number] DATE OF SURGERY: 03/02/2017 SURGEON: Dave Spivey MD. SUPPLY REQUIREMENTS OFFICER: Cortez Rosario PA-C, and also Dr. Richard Holloway. ANESTHESIA: General. PREOPERATIVE DIAGNOSIS(ES): Gallstone pancreatitis. POSTOPERATIVE DIAGNOSIS(ES): Gallstone pancreatitis. PRINCIPAL PROCEDURE: Laparoscopic cholecystectomy with intraoperative cholangiogram. INDICATION FOR PROCEDURE: The patient is a 56-year-old male with gallstone pancreatitis. Ultrasound and CT scan showing gallstones. His lipase level has decreased from the 1100 range down to 74 today. PRINCIPAL FINDING: Successful laparoscopic cholecystectomy. The intraoperative cholangiogram was normal. There were numerous small yellowish stones in the gallbladder. The assistance from a surgical PA was critical in completion of the case. PROCEDURE COURSE: The patient was brought to the operating table and was provided with general anesthesia. The patient was given IV antibiotics and SCDs. A time-out was performed. The patient's abdomen was then prepped and draped in the usual sterile fashion. Next, local anesthetic was injected into the infraumbilical location and a 5 mm stab incision was made. A Veress needle was used to establish a pneumoperitoneum. Next, a 5 mm trocar was then placed and the laparoscope was then introduced. A 12 mm trocar was then placed in the subxiphoid location, and two additional 5 mm trocars were then placed in the right lateral abdomen. The gallbladder was quite distended and it was difficult to grasp using instruments. Therefore, the gallbladder was first decompressed using an aspiration needle and bile was aspirated from the gallbladder. After aspiration, we were able to grab onto the gallbladder wall and retracted it cephalad. Dissection of the Calot triangle was then carried out, and we were able to identify the cystic duct. A clip was then placed on the gallbladder/cystic duct junction, and a partial transection of the duct was made. Intraoperative cholangiogram showed normal proximal and distal biliary anatomy without any filling defects, and the contrast drained into the duodenum. The cholangiocatheter was then removed from the patient. Two additional clips were then placed on the proximal cystic duct and then the duct was then transected. The cystic artery was similarly identified, clipped, and divided. Electrocautery was then used to detach the gallbladder from the gallbladder fossa. The specimen was then placed into the EndoCatch bag and removed from the patient. Copious irrigation of the right upper quadrant was carried out. Given that there was quite a bit of bile spillage during the case, we decided to place a drain. A 19-Mongol[place] Tee-Johnson drain was then introduced through the right lateral port site and placed into the subhepatic space. Inspection of the clips at the operative bed shows that there is no bile leak and there are no signs of arterial bleeding at the end the case. Next, we turned our attention to the subxiphoid port. The fascial defect there was then reapproximated using 0 Vicryl suture using the Endo Close device. Next, CO2 was allowed to escape and all the trocars were then removed from the patient. Skin edges were then reapproximated using absorbable sutures. The Tee-Johnson drain was secured to the skin using a nylon suture. The drain was connected to a bulb suction device. By the end of procedure, needle counts and sponge counts were correct. The patient was then extubated and taken to the recovery room in stable satisfactory condition.
[2017-03-03 00:03] VITALS: BP 131/70; PULSE 61; RESP 20; O2SAT 98
--- NOTE | 2017-03-03 03:36 | NUR ---
Pain/Activity Pt reports pain 4-5/10, rec'd oxycodone PRN x2 with + effects. Pt up in chair, transferring and ambulating well. Pt family here until 2100. Pt slept most of night, 2L o2 applied at HS as sat's dropped to 88%. PORFIRIO drain patent with sero sanguineous fluid.
[2017-03-03] MEDS: Piperacillin-Tazo 3.375 Gm Inj 3.375 GM in Dextrose 5% Minibag Plus 50 ML IV SCH (05:56)
[2017-03-03 06:12] VITALS: BP 151/79; PULSE 65; RESP 18; O2SAT 95
[2017-03-03] MEDS: 0.9% Sodium Chloride 1,000 ML IV SCH (06:28)
[2017-03-03 06:31] LABS: BASOPHILS % (AUTO) 0.1 % (0-3); EOSINOPHILS % (AUTO) 0.2 % (0-5); MONOCYTES % (AUTO) 8.3 % (4-12); Mean Corpuscular Hemoglobin 29.2 pg (27.0-35.0); Mean Corpuscular Volume 88.1 fL (81-100); NEUTROPHILS % (AUTO) 84.7 % (40-74); Platelet Count 180 bil/L (150-400)
[2017-03-03 08:47] VITALS: BP 163/76; PULSE 74; RESP 18; O2SAT 95
[2017-03-03] MEDS: Ondansetron 2 mg/mL 2 mL Inj IVPUSH PRN (08:55)
--- NOTE | 2017-03-03 09:11 | PCM.PNSURG ---
Subjective Visit Information: Reason for Visit Gallstone Pancreatitis Surgery/Surgery Date LAP CAROLYN 03/02/17 Post-Op Day # Date of Admission: Mar 01, 2017 at 00:54 Hospital Day # Subjective: no acute events overnight, some nausea this am from breakfast, a little sore at RUQ and his chronic back pain Objective Objective Awake in bed Abd: obese, PORFIRIO -- serosang 150 cc overnight T bili 0.5, lipase 21 Vital Sign- Last 8 Hours Date Time Temp Pulse Resp B/P Pulse Ox O2 Delivery O2 Flow Rate FiO2 03/03/17 08:47 36.8 74 18 163/76 95 Room Air 03/03/17 06:12 36.7 65 18 151/79 95 Room Air 03/03/17 02:47 Supplement Oxygen Intake and Output- Last 8 Hour 03/03/17 Cumulative From/Thru 07:00 02/28/17 19:41 - 03/03/17 06:12 Intake Total 1637 ml 7910 ml Output Total 1950 ml 4700 ml Balance -313 ml 3210 ml Intake Oral 1000 ml 1765 ml IV Total 637 ml 6145 ml Output Urine Total 1800 ml 4450 ml Drainage Total 150 ml 230 ml Estimated Blood Loss 20 ml # Bowel Movements 0 0 Result Diagram: 03/03/17 0555 03/03/17 0555 Assessment & Plan Impression POD #1 s/p lap carolyn for gallstone pancreatitis Lipase normal today WBC down compared to yesterday Problems: Plan Advance diet as tolerated If tolerates diet, OK to discharge home later today OK to d/c home with PORFIRIO drain in place Need f/u with Surgery PA in Surgery clinic for PORFIRIO removal VTE Prophylaxis: Sub-Q Heparin (Unfractionated) Resuscitation Status: DNR/DNI:Do Not Resuscitate/Intubate Dave Spivey MD March 03, 2017 09:10
[2017-03-03 09:27] VITALS: PULSE 65
--- NOTE | 2017-03-03 13:47 | PCM.DIMED ---
Discharge Instructions Date of Service March 03, 2017 Dates of Hospitalization Mar 01, 2017 at 00:54 Discharge Diagnosis Discharge Diagnosis Pancreatitis secondary to cholecystitis Laparoscopic cholecystectomy Diet Low fat, Low Sodium Activity No restrictions Call your provider Fever or Chills, Shortness of breath, Bleeding, Chest pain, Vomitting, Excessive diarrhea, Weakness (unilateral) Patient Instructions Please empty her PORFIRIO drain as instructed by her nurse 2-3 times a day. Please do not pull out the PORFIRIO drain the surgeon will do this in the office. Provider: Dave Spivey MD Follow-up in: 2 weeks (if an appointment has not been made please call to schedule an appointment) Adriana Ibarra DO March 03, 2017 13:47
--- NOTE | 2017-03-03 13:54 | PCM.DC.MED ---
Discharge Summary Date of Service March 03, 2017 Dates of Hospitalization Date of Hospital Admission Mar 01, 2017 at 00:54 Date of Discharge: March 03, 2017 Providers: Admitting Physician: Padmini Yanez DO Primary Care Physician: Elisabet Attending Physician: Padmini Yanez DO Diagnosis at Time of Discharge Diagnosis at Time of Discharge Pancreatitis secondary to cholecystitis Laparoscopic cholecystectomy Procedures XRay, CTs & MRIs CT abdomen pelvis with contrast Conclusion: Acute pancreatitis. Small amount of ascites. Cholelithiasis. Prominent gallbladder wall may be consistent with acute cholecystitis or secondary to pancreatitis. Fat containing umbilical hernia without evidence of complication. Colonic diverticulosis. Atelectasis in the lung bases. Brief History 56yoM with minimal past medical history admitted with 2 day history of epigastric pain with concern for pancreatitis. On 02/27 at 9pm patient states that he began having 7/10 mid epigastric pain that radiated in a band like distribution and progressed to 9/10. Pain was associated with nausea and improved with tramadol however persisted until seen at [facility] ED for further evaluation. Patient has never felt similar pain before but he does have a traumatic back injury which interferes with his evaluation of his pain. He has no history of pancreatitis, gall stones, cholelithiasis, ETOH use, HLD or recent medication changes. He denies fever, chills, vomiting, lightheadedness, dizziness, chest pain, chest tightness, shortness of breath but does endorse nausea with a decrease in PO intake. On presentation vitals T36.4, HR 84, RR 17, BP 151/88, 96% on RA. WBC 16.7, lipase 1120, mildly elevated AST/ALT Hospital Course 56yoM with minimal past medical history admitted with 2 day history of epigastric pain with concern for pancreatitis. Patient was admitted for acute pancreatitis secondary to cholecystitis. The patient underwent a lap cholecystectomy on 03/02/2017. The patient is currently doing well and tolerating a full diet. The patient will be sent home and may continue his current pain management regiment with tramadol and Zofran for nausea. See below for full hospital course: Pancreatitis, acute -no prior history of pancreatitis, no ETOH use, no history of elevated triglycerides -likely secondary to gall stones however CBD not dilated, AST / ALT elevated, AM labs still pending. -CT scan as above, consistent with pancreatitis -triglyceride level pending -NS 150cc/hr -currently NPO - Gen surgery consulted, DX'd gallstone pancreatitis, planning surgical intervention (choplecystectomy) later today - Continue PRN pain emdications as need Leukocytosis, acute -potentially a/w pancreatitis however CT scan concerning for cholecystitis -will continue to monitor, upward trending since admission, AM labs pending - Zosyn initiated on 02/19 Elevated glucose, acute -no history of diabetes -hgbA1c pending Elevated transaminase level, acute -a/w gallstone dz - continue trending S/P procedure. Obesity -Patient should focus on a heart healthy diet and weight loss upon discharge patient should also start on a low-fat diet as this will also help decrease the chances of pancreatitis. Exam Vital Signs (Last) Date Time Temp Pulse Resp B/P Pulse Ox O2 Delivery O2 Flow Rate FiO2 03/03/17 09:27 65 03/03/17 08:47 36.8 18 163/76 95 Room Air 03/02/17 15:40 2.00 Exam Physical Exam: GEN: Patient was awake, alert, responding appropriately to questions HEENT: Pupils equal round and reactive to light, extraocular eye muscles intact , Neck soft supple, trachea midline, nomocephalic/atraumatic CV: +S1/S2, regular rate and rhythm, no murmurs auscultated Respiratory: CTAB, no wheezes, rales, rhonchi GI: +bowel sounds x4, soft, compressible, mild tenderness to palpation, obese EXT: no clubbing, cyanosis, edema Neuro: Cranial nerves II-XII grossly intact Psych: mood and affect were appropriate Test 02/28/17 20:20 02/28/17 20:50 03/01/17 08:20 03/02/17 09:25 Hemoglobin A1c 5.6% (4.8-5.6) Magnesium Level 1.8mg/dL (1.6-2.6) Troponin T < 0.010ug/L (0.0-0.011) Triglycerides Level 117mg/dL (0-149) Urine Color Dark yellow (YELLOW) Urine Appearance Hazy (CLEAR,HAZY) Urine pH 5.5 (5.0-8.0) Urine Specific Ceres 1.030 (1.003-1.035) Urine Protein Negativemg/dL (NEG,TRACE) Urine Glucose (UA) Negativemg/dL (NEGATIVE) Urine Ketones Tracemg/dL (NEGATIVE) Urine Occult Blood Negative (NEGATIVE) Urine Nitrite Negative (NEGATIVE) Urine Bilirubin Negative (NEGATIVE) Urine Urobilinogen Normalmg/dL (NORMAL) Urine Leukocyte Esterase Negative (NEGATIVE) Urine RBC 0-2/hpf (0-2) Urine WBC 0-5/hpf (0-5) Urine Epithelial Cells Occasional/hpf (NONE-MOD) Urine Crystals None seen (NONE SEEN) Urine Bacteria Few/hpf (NONE-FEW) Urine Hyaline Casts None/lpf (NONE) Urine Granular Casts None seen (NONE SEEN) Urine Waxy Casts None seen (NONE SEEN) Urine Red Blood Cell Casts None seen (NONE SEEN) Urine White Blood Cell Casts None seen (NONE SEEN) Urine Mucus Present (None Seen) Urine Trichomonas None seen (NONE SEEN) Urine Yeast None (NONE SEEN) Urinalysis Comment None Urine Culture Reflexed Not indicated C-Reactive Protein 5.2mg/dL (0.0-0.5) Procalcitonin 0.10ng/mL (0.00-0.08) Prothrombin Time 11.4sec (8.1-12.5) Prothromb Time International Ratio 1.06ratio Test 03/03/17 05:55 White Blood Count 15.5th/mm3 (3.8-10.1) Red Blood Count 4.28mil/mm3 (4.40-5.80) Hemoglobin 12.5g/dL (13.8-17.2) Hematocrit 37.7% (41.0-50.0) Mean Corpuscular Volume 88.1fL (81-100) Mean Corpuscular Hemoglobin 29.2pg (27.0-35.0) Mean Corpuscular Hemoglobin Concent 33.2% (32.0-37.0) Red Cell Distribution Width 13.3% (12.3-15.4) Platelet Count 180bil/L (150-400) Neutrophils (%) (Auto) 84.7% (40-74) Lymphocytes (%) (Auto) 6.5% (14-46) Monocytes (%) (Auto) 8.3% (4-12) Eosinophils (%) (Auto) 0.2% (0-5) Basophils (%) (Auto) 0.1% (0-3) Sodium Level 137mEq/L (134-144) Potassium Level 4.3mEq/L (3.5-5.2) Chloride Level 101mEq/L (97-108) Carbon Dioxide Level 25mmol/L (18-29) Blood Urea Nitrogen 11mg/dL (6-24) Creatinine 0.75mg/dL (0.76-1.27) Estimat Glomerular Filtration Rate 114mL/min (>59) Glucose Level 130mg/dL (60-99) Calcium Level 8.6mg/dL (8.5-10.1) Total Bilirubin 0.5mg/dL (0.0-1.2) Aspartate Amino Transf (AST/SGOT) 35U/L (0-50) Alanine Aminotransferase (ALT/SGPT) 66U/L (0-44) Alkaline Phosphatase 52U/L (25-150) Total Protein 5.9g/dL (6.4-8.4) Albumin 3.5g/dL (3.4-5.0) Lipase 21U/L (13-60) Discharge Medications Discharge Medications IBUPROFEN-Expunged Drug, Do Not Renew! (IBUPROFEN-Expunged Drug, Do Not Renew!) 200 Mg Tablet 600 MG PO PRN (Reported) QID as needed/Stopped 12/20/10 Pantoprazole (Pantoprazole DR) 20 Mg Tablet.dr 20 MG PO BID Prescribed by: NAFISA TRAN MD As needed Ondansetron (Zofran) 4 Mg Tablet 4 MG PO Q4H PRN PRN For Nausea Prescribed by: NAFISA TRAN MD Tramadol (Tramadol) 50 Mg Tablet 50-100 MG PO BID PRN PRN For Pain (Reported) Followup Plan Disposition: Patient is being discharged home in stable condition Discharge Diet: Low fat, Low Sodium Discharge Activity: No restrictions Patient Instructions Please empty her PORFIRIO drain as instructed by her nurse 2-3 times a day. Please do not pull out the PORFIRIO drain the surgeon will do this in the office. Provider: Dave Spivey MD Follow-up in: 2 weeks (if an appointment has not been made please call to schedule an appointment) Time spent Greater than 35 minutes Adriana Ibarra DO March 03, 2017 13:54
--- NOTE | 2017-03-03 14:44 | NUR ---
Social Work- Readiness for Discharge/Discharge Data: EMR reviewed. Pt is on day 2 of hospitalization for gallstone pancreatitis per H&P. Pt is medically stable to discharge today. Pt is ambulating independently. Pt to discharge home with to transport via POV. No discharge needs identified. Assessment: Pt who is independent at base. Plan: Pt is medically stable to discharge today. Pt to discharge home with to transport via POV. No discharge needs identified. Kim Morgan MSW
--- NOTE | 2017-03-03 15:09 | NUR ---
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 IV catheter was removed by SN, catheter intact. Reviewed discharge paperwork with patient including how to drain and care for PORFIRIO drain, hygiene recommendations for dressing care. No new medications were started. Patient aware to call general surgery clinic for follow up appointment and not to remove PORFIRIO drain by himself. Patient and spouse present for teaching. Patient got dressed independently and took all personal belongings. Ambulated off unit with .
--- NOTE | 2017-03-04 15:13 | PATH ---
SURGICAL PATHOLOGY Attending Physician:Dave Spivey M.D. CASE STATUS: Signed Out PATIENT NAME: ARIELLA SCHNEIDER PID: [id number] : 1960 DATE COLLECTED:03/02/2017 00:00 SPECIMEN: Gallbladder CLINICAL HISTORY: PANCREATITIS 1). GALLBLADDER FINAL DIAGNOSIS: 1.GALLBLADDER: CHRONIC ACTIVE CHOLECYSTITIS WITH CHOLELITHIASIS. NO EVIDENCE OF MALIGNANCY. ICD10 CODE K80.6 GROSS DESCRIPTION: The specimen is received in one formalin filled container labeled with the patient's name, sublabeled "gallbladder" and consists of an opened 8.5 x 3.0 x 2.0 CM gallbladder. The serosa is smooth. The cystic duct is possibly identified. The wall is 0.2-0.7 CM in thickness. The mucosa is a dark green in color. The lumen contains a dark green mucoid material and approximately 30+ yellow-holm cobblestone calculi which range in size from 0.1-0.5 CM in greatest dimension. 5 route service representative sections are submitted in one cassette. 03/02/2017 [facility] MICRO DESCRIPTION: See diagnosis. ICD-9 CODES: CPT CODES: 1: 64096 Electronically Signed Out George Tinoco MD [facility] [address], [place] [address] Technical component performed at [facility], [facility] [address], [address]
== END 2017-03-03 14:50 | disposition home or self-care (01) | DRG 419 ==
LOC: SED 19:38 → MPC 03-01 00:54 → OSC 03-02 14:05
PROVIDERS: ADMIT Internal Medicine; ATTEND Internal Medicine
PROC: BF101ZZ Fluoroscopy of Bile Ducts using Low Osmolar Contrast (ICD-10-PCS; 2017-03-02)
PROC: 0FT44ZZ Resection of Gallbladder, Percutaneous Endoscopic Approach (ICD-10-PCS; principal; 2017-03-02 11:00)
DX: K85.10 Biliary acute pancreatitis without necrosis or infection (principal); R73.9 Hyperglycemia, unspecified